=== PATIENT | female | born 1955 | race Caucasian/White ===

== ENCOUNTER 2019-02-09 16:28 | Inpatient (IN) | payer OTHER ==
[~2019-02-09] VITALS: Ht 160 cm; Wt 96.6 kg
--- NOTE | ~2019-02-09 | EKG ---
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
--- NOTE | ~2019-02-09 | EKG ---
[place], [place] ELECTROCARDIOGRAM REPORT NAME: GOLDEN LAND UNIT #: [id number] ROOM: 518 DOCTOR: ARLETH DRAFT REPORT BIRTHDATE: [birth year] [facility] Test Date: 2019-02-09 Test Time: 22:14:29 Pat Name: GOLDEN LAND Department: Room: 518 Gender: F [employer] Assembler: Chidi Buchanan : 1955 Requested By: GEN CORONADO Order Number: [id number] Reading MD: Kavitha Alexander MD Measurements Intervals [place] Rate: 62 P: 57 [place]: 177 QRS: 12 QRSD: 93 T: 13 QT: 423 QTc: 430 Interpretive Statements Sinus rhythm Consider left atrial enlargement Consider inferior infarct Baseline wander in lead(s) V4 Electronically Signed On 02-10-2019 13:50:35 PDT by Kavitha Alexander MD CM:EKGRPT:ELECTROCARDIOGRAM REPORT [id number] GEN AMADO DRAFT REPORT GEN CORONADO DO
--- NOTE | ~2019-02-09 | PR ---
[place], [place] PROGRESS NOTE NAME: GOLDEN LAND UNIT #: [id number] ROOM: 518 DOCTOR: DONY MCKNIGHT MD BIRTHDATE: [birth year] DOS: PHYSICAL EXAMINATION: GENERAL APPEARANCE: The patient is alert and oriented x 3, in no visible distress. VITAL SIGNS: Blood pressure 142/72, heart rate of 82 beats per minute, afebrile, breathing normally. HEENT AND NECK: Exam within normal limits. CARDIOVASCULAR SYSTEM: Heart rate is regular in rate and rhythm. S1 and S2 normally audible. LUNGS: Clear to auscultation. ABDOMEN: Soft, nontender. No obvious organomegaly. Bowel sounds are present. EXTREMITIES: Without significant cyanosis or edema. DISCHARGE DIAGNOSES: 1. Chest pains with negative cardiac enzymes. Cardiolite results still pending. Stress test was normal so far. 2. Benign essential hypertension. 3. Obesity, BMI of 36.7. 4. Mixed type hyperlipidemia. 5. Iron deficiency anemia. 6. Migraine type headaches. 7. Type 2 diabetes mellitus. 8. The patient presented with complaints of left-sided and precordial chest pain radiating into the left shoulder until she was treated in the Emergency Department and her pains resolved. All cardiac enzymes negative. The patient underwent cardiac stress testing and nuclear scan results are still pending. If normal, the patient will be discharged to home. Dr. Alexander will read the nuclear results. 9. Benign essential hypertension with severely elevated blood pressures at admission. The patient was started on her Coreg that she takes at home and I also added Norvasc 5 mg to treatment. Following this, I discovered that the patient was also taking losartan and hydrochlorothiazide at home, which was also restarted. Blood pressures are staying normal. 10. Hypothyroidism, replaced with levothyroxine. 11. Type 2 diabetes mellitus, treated with metformin. Blood sugar was 126. 12. Type 2 diabetes mellitus. Blood sugars controlled. 13. Diabetic nephropathy with EGFR 53, which is stage 3A chronic kidney disease. The patient appropriately treated with losartan. [place], [place] PROGRESS NOTE NAME: GOLDEN LAND UNIT #: [id number] ROOM: 518 DOCTOR: DONY MCKNIGHT MD BIRTHDATE: [birth year] DONY MCKNIGHT MD CM:PNHEIDI [id number] DONY MCKNIGHT MD 02/10/19 1126 interface
--- NOTE | ~2019-02-09 | EKG ---
[place], [place] ELECTROCARDIOGRAM REPORT NAME: GOLDEN LAND UNIT #: [id number] ROOM: 518 DOCTOR: ARLETH DRAFT REPORT BIRTHDATE: [birth year] [facility] Test Date: 2019-02-09 Test Time: 19:28:12 Pat Name: GOLDEN LAND Department: Room: 518 Gender: F Web Page Designer: Chidi Buchanan : 1955 Requested By: GEN CORONADO Order Number: [id number] Reading MD: Kavitha Alexander MD Measurements Intervals [place] Rate: 63 P: 19 [place]: 163 QRS: -3 QRSD: 100 T: 22 QT: 426 QTc: 437 Interpretive Statements Sinus rhythm Inferior infarct, old Electronically Signed On 02-10-2019 13:48:49 PDT by Kavitha Alexander MD CM:EKGRPT:ELECTROCARDIOGRAM REPORT [id number] 1348 GEN AMADO DRAFT REPORT GEN CORONADO DO
--- NOTE | ~2019-02-09 | WRIGHTHP ---
[place], [place] PATIENT HISTORY AND PHYSICAL EXAM NAME: GOLDEN LAND [facility] #: [id number] UNIT #: [id number] ROOM: 518 DOCTOR: DONY MCKNIGHT MD BIRTHDATE: [birth year] DOS: 02/09/2019 HISTORY OF PRESENT ILLNESS: The patient is a 63-year-old female with a past medical history of: 1. Hypertension. 2. Obesity, BMI of 36.7. 3. Mixed hyperlipidemia. 4. Iron-deficiency anemia. 5. Migraine-type headaches. 6. Type 2 diabetes mellitus. The patient presented to the Emergency Department with chest pains for a few hours, which resolved in the Emergency Department after she was given treatment. The pains were precordial and radiating into the left shoulder and accompanied by shortness of breath. No nausea or diaphoresis. The patient's troponin level was normal. Creatinine elevated to 1.25, blood sugar 126. Chest x-ray normal. EKG without acute abnormality. IMPRESSIONS: 1. Chest pains with negative cardiac enzymes. Three more sets were ordered and if they are negative, the patient has been scheduled for a cardiac stress test in the morning. The patient has previous history of 30% blockage of coronary artery 2 years back when she had a heart catheterization. The patient is a high risk for coronary artery disease because of her age of 63, complains of angina-like chest pains, being a diabetic and hypertensive. 2. Severe benign essential hypertension with severe hypertensive crisis with blood pressure of 217 systolic and 199 diastolic, improved with treatment. I will continue her Coreg and add Norvasc to the treatment. 3. Obesity with body mass index of 36.7. The patient to work with dietary. DONY MCKNIGHT MD CM:HISPHYS:PATIENT HISTORY AND PHYSICAL EXAMINATION 24 29 DONY MCKNIGHT MD 02/09/192028 interface
--- NOTE | ~2019-02-09 | ST ---
[place], [place] EXERCISE STRESS TEST REPORT [id number] UNIT #: [id number] ROOM: 518 DOCTOR: DONY MCKNIGHT MD BIRTHDATE: [birth year] DOS: 02/10/2019 LEXISCAN CARDIOLITE STRESS TEST The patient is a 63-year-old female, presently admitted to [facility] for complaints of chest pains when she does have a history of coronary artery disease. The patient was given Lexiscan 0.4 mg, followed by nuclear injection at 40 seconds with a Cardiolite and her EKG were monitored. The patient had no chest pain complaints during the testing and recovery phase. Baseline EKG showed heart rate of 62 beats per minute with normal sinus rhythm, normal cardiac axis, no ST-T abnormality. During the testing and recovery phase, the patient did not develop any significant EKG changes compatible with myocardial ischemia. The patient's heart rate ranged between 62-93 beats per minute and blood pressure ranged between 138 systolic over 80 diastolic to 150 systolic over 90 diastolic. No significant cardiac dysrhythmias were observed. IMPRESSION: Normal EKG part of the Lexiscan Cardiolite stress test. Normal EKG's. Cardiolite nuclear scan results to be reported by Dr. Alexander separately later today. DONY MCKNIGHT MD CM:STRESS:EXERCISE STRESS TEST REPORT [id number] DONY MCKNIGHT MD
[~2019-02-09 16:28] MED LIST: ASPIRIN81 M1 PO; CARVEDILOL25 MG PO; ELOCON0.1% T; METFORMIN ER500 MG PO; PANTOPRAZOLE SO40 MG PO; ZYRTEC10 MG PO
[2019-02-09 16:33] VITALS: BP 217/99
[2019-02-09 16:48] LABS: BASO # 0.1 10*3/uL (0.0-0.1); BASO % 1.1 % (0.0-1.0); EOS # 0.2 10*3/uL (0.0-0.4); EOS % 2.4 % (1.0-4.0); HEMATOCRIT 37.3 % (37.0-47.0); HEMOGLOBIN 12.3 g/dl (12.0-16.0); LYMPH # 1.7 10*3/uL (1.3-4.4); LYMPH % 26.1 % (27.0-41.0); MEAN CELL VOLUME 92.6 fl (81.0-99.0); MEAN CORPUSCULAR HGB 30.5 pg (27.0-31.0); MEAN PLATELET VOLUME 10.9 fl (9.6-12.3); MONO # 0.5 10*3/uL (0.1-1.0); MONO % 7.2 % (3.0-9.0); NEUT % 62.9 % (47.0-73.0); PLATELET COUNT AUTOMATED 230 10*3/uL (130-400); RED BLOOD COUNT 4.03 10*6/uL (4.10-5.10); RED CELL DISTRI WIDTH 13.5 % (0-14.5); WHITE BLOOD COUNT 6.4 10*3/uL (4.8-10.8)
[2019-02-09 16:49] VITALS: BP 190/88
[2019-02-09 16:56] VITALS: BP 174/86
--- NOTE | 2019-02-09 17:04 | NUR ---
PT UP TO THE BS WITH NO ASSIST, PT STATES SHE HAS NO CHEST PAIN AT THIS TIME.
[2019-02-09 17:13] LABS: ALBUMIN 3.6 gm/dl (3.1-4.5); ALKALINE PHOSPHATASE 86 U/L (45-117); BUN 21 mg/dl (7-24); CHLORIDE 106 mmol/L (98-107); CREATININE 1.25 mg/dL (0.55-1.02); POTASSIUM 4.2 mmol/L (3.5-5.1); SGOT/AST 19 IU/L (3-35); SGPT/ALT 20 U/L (12-78); SODIUM 142 mmol/L (136-145); TOTAL PROTEIN 7.9 gm/dL (6.4-8.2)
[2019-02-09 17:16] LABS: ACT PARTIAL THROMBO TIME 25.1 SECONDS (20.8-31.5); TROPONIN I < 0.015 ng/ml (<0.045)
[2019-02-09 18:57] VITALS: BP 155/88
[2019-02-09 20:10] VITALS: BP 147/77
--- NOTE | 2019-02-09 20:20 | NUR ---
A 63, admitted to 5E, under the services of Dr. JUAN LUIS ELIZABETH,DONY Kerns with a diagnosis of . Chief complaint is CHEST PAIN. Patient arrived via wheel chair from ER. Monitor applied. Initial assessment completed. Vital signs taken and recorded. DR. JUAN LUIS ELIZABETH,DONY Kerns notified of admission to the unit. Orders received. See assessment for past medical history, medications and allergies. Patient and/or family oriented to unit. [address] visitation policy reviewed. Clothing/patient valuable form completed. STEVEN LUQUE
[2019-02-09 20:30] VITALS: BP 132/72
[2019-02-09] MEDS ORDERED: Synthroid,Levo25 MCG PO (20:44)
[2019-02-09] MEDS ORDERED: LOSARTAN-HCTZ1 EACH PO (20:47)
--- NOTE | 2019-02-09 21:47 | NUR ---
CALLED DR. Holbrook TO CLARIFY MED LIST, OKAY TO ADD SYNTHROID, LASARTAN HCTZ, AND METFORMIN. OKAY GIVE TYLENOL FOR HEADACHE. NURSE THANMKED STAFF.
--- NOTE | 2019-02-09 22:11 | NUR ---
CALLED CONSULT TO ANSWERING SERVICE FOR CONSULT AND STRESS TEST REQUEST. GAVE CURRENT VITALS. FOR DR. LEUNG.
--- NOTE | 2019-02-09 23:30 | NUR ---
PATIENT MEDICATED SLOWLY WITH DILAUDID 0.5 MG IV PER PRN ORDER FOR C/O HEADACHE NOT RELIEVED BY TYLENOL. SEE EMAR. REINFORCED USE OF CALL LIGHT.
[2019-02-10] VITALS: BP 143/72
--- NOTE | 2019-02-10 | NUR ---
PATIENT RESTING QUIETLY. NO FURTHER C/O VOICED.
--- NOTE | 2019-02-10 03:25 | NUR ---
24 HR chart check completed.
[2019-02-10 08:00] VITALS: BP 154/68
--- NOTE | 2019-02-10 08:30 | NUR ---
Manuscripts Curator in to see patient. She is currently being wheeled to cardiac rehab for a stress test. Will follow up at a later time.
--- NOTE | 2019-02-10 08:34 | NUR ---
PT OFF FLOOR VIA WHEELCHAIR TO CARDIAC REHAB.
--- NOTE | 2019-02-10 09:28 | NUR ---
INFORMED SIGNED CONSENT OBTAINED FOR LEXISCAN STRESS TEST WITH DR MCKNIGHT. RESTING EKG NSR HR 62 BP 150/90. PULSE OX 99% LUNGS CLEAR. PT COMPLETED ONE MINUTE OF A LEXISCAN STRESS TEST WITH PT RECEIVING LEXISCAN 0.4MG IV OVER 10 SEC[address] NO ARRHYTHMIAS OR ST CHANGES NOTED. PT CONTINUES TO HAVE NAUSEA AND EMESIS WITH INJECTION, PT WAS NAUSEATED WHEN SHE CAME DOWN TO CARD DEPARTMENT. LAST RECOVERY HR OF 88 BP 140/82. PT HAD AN UNMEASURABLE EMESIS ONTO THE FLOOR. PT IN STABLE CONDITION, AWAITING NUCLEAR IMAGES.
--- NOTE | 2019-02-10 11:25 | NUR ---
PT RETURNED FROM STRESS TEST VIA TRANSPORT.
[2019-02-10 12:00] VITALS: BP 164/72
--- NOTE | 2019-02-10 13:56 | NUR ---
Patient resting quietly with no c/o discomfort. Respirations easy and regular. Vital signs stable. No overt distress. GOLDEN JIANG
--- NOTE | 2019-02-10 14:30 | NUR ---
Literacy Consultant in to talk to patient. Patient states lives at home alone with her family checking in on her. There are 12 steps in the home. Physician: Dr. Ok Antonio [facility]acy: [facility] Home health services: none Patient's level of ADLs: INDEPENDENT Patient has working utilities: yes DME: none Follow-up physician's appointment after d/c: she prefers to make her own follow up appt after discharge Does patient want to access PORTAL?: no Discharge plan discussed with patient. She lives at home with her family checking in on her. She is independent in her ADLs and ambulation. Discussed home health care services and she denies any home needs at this time. When medically stable she will be discharged to home. ARCHANA MCGINNIS
[2019-02-10 16:00] VITALS: BP 105/57
--- NOTE | 2019-02-10 16:06 | NUR ---
SPOKE TO DR MCKNIGHT REGARDING PTS DISCHARGE. ORDER RECEIVED TO DISCHARGE PT TO HOME. RESUME HOME MEDICATIONS. SEE PCP WEDNESDAY. NO NEW MEDICATIONS
--- NOTE | 2019-02-10 18:45 | NUR ---
Discharge instructions reviewed with patient/family. Patient receptive and verbalizes understanding. Follow-up care arranged. Written instructions given to patient/family. GOLDEN JIANG
== END 2019-02-10 18:45 | disposition home or self-care (01) | DRG 305 ==
LOC: ED 16:28 → 5E 18:35 → EDHOLD 18:35 → 5E 20:10
PROVIDERS: Emergency Medicine; ADMIT Internal Medicine
DX: I16.0 Hypertensive urgency (principal); E66.9 Obesity, unspecified; I12.9 Hypertensive chronic kidney disease with stage 1 through stage 4 chronic kidney disease, or unspecified chronic kidney disease; E11.22 Type 2 diabetes mellitus with diabetic chronic kidney disease; E78.00 Pure hypercholesterolemia, unspecified; G43.909 Migraine, unspecified, not intractable, without status migrainosus; D50.9 Iron deficiency anemia, unspecified; N18.3 Chronic kidney disease, stage 3 (moderate); E78.2 Mixed hyperlipidemia; E03.9 Hypothyroidism, unspecified; R07.89 Other chest pain; Z88.8 Allergy status to other drugs, medicaments and biological substances; Z90.710 Acquired absence of both cervix and uterus; Z98.51 Tubal ligation status; Z82.49 Family history of ischemic heart disease and other diseases of the circulatory system; Z68.36 Body mass index [BMI] 36.0-36.9, adult

== ENCOUNTER 2019-03-29 15:40 | Emergency (ER) | payer OTHER ==
[~2019-03-29] VITALS: Ht 160 cm; Wt 93.9 kg
[~2019-03-29 15:40] MED LIST changes: +LOSARTAN-HCTZ1 EACH PO; +Synthroid,Levo25 MCG PO
[2019-03-29 16:36] VITALS: BP 145/78
[2019-03-29] MEDS ORDERED: MEDROL DOSEPAK4 MG PO (17:28)
[2019-03-29] MEDS ORDERED: EPIPEN 2-P0.3 MG/0.3 IJ (17:32)
== END 2019-03-29 17:37 | disposition home or self-care (01) ==
LOC: ED 15:40
DX: T63.461A Toxic effect of venom of wasps, accidental (unintentional), initial encounter (principal); M79.89 Other specified soft tissue disorders; R09.89 Other specified symptoms and signs involving the circulatory and respiratory systems; Z88.8 Allergy status to other drugs, medicaments and biological substances; Z88.1 Allergy status to other antibiotic agents; Z79.84 Long term (current) use of oral hypoglycemic drugs; Z79.899 Other long term (current) drug therapy; Z90.710 Acquired absence of both cervix and uterus; Y92.89 Other specified places as the place of occurrence of the external cause

== ENCOUNTER → 2019-05-30 | Outpatient (CLI) | payer OTHER ==
[~2019-05-30] MED LIST changes: +EPIPEN 2-P0.3 MG/0.3 IJ; +MEDROL DOSEPAK4 MG PO
[2019-05-30 08:31] LABS: HEMATOCRIT 37.2 % (37.0-47.0); HEMOGLOBIN 12.2 g/dl (12.0-16.0); MEAN CELL VOLUME 95.1 fl (81.0-99.0); MEAN CORPUSCULAR HGB 31.2 pg (27.0-31.0); MEAN CORPUSCULAR HGB CONC 32.8 g/dl (33.0-37.0); RED BLOOD COUNT 3.91 10*6/uL (4.10-5.10); RED CELL DISTRI WIDTH 14.5 % (0-14.5); WHITE BLOOD COUNT 4.4 10*3/uL (4.8-10.8)
[2019-05-30 09:03] LABS: ALBUMIN 3.9 gm/dl (3.1-4.5); POTASSIUM 4.4 mmol/L (3.5-5.1)
[2019-05-30 09:10] LABS: CREATININE 1.19 mg/dL (0.55-1.02); FREE T4 1.07 ng/dl (0.76-1.46); THYROID STIM HORMONE (HS) 2.96 uIU/ml (0.358-4.75); TOTAL PROTEIN 7.1 gm/dL (6.4-8.2)
== END | disposition home or self-care (01) ==
LOC: LAB 07:35
PROVIDERS: Family Medicine
DX: E78.00 Pure hypercholesterolemia, unspecified (principal); E55.9 Vitamin D deficiency, unspecified; E74.9 Disorder of carbohydrate metabolism, unspecified; M19.91 Primary osteoarthritis, unspecified site; I10 Essential (primary) hypertension

== ENCOUNTER → 2019-12-07 | Outpatient (CLI) | payer OTHER ==
[2019-12-07 09:25] LABS: HEMATOCRIT 39.9 % (37.0-47.0); MEAN CELL VOLUME 94.5 fl (81.0-99.0); MEAN CORPUSCULAR HGB 30.8 pg (27.0-31.0); MEAN CORPUSCULAR HGB CONC 32.6 g/dl (33.0-37.0); RED BLOOD COUNT 4.22 10*6/uL (4.10-5.10); RED CELL DISTRI WIDTH 13.4 % (0-14.5); WHITE BLOOD COUNT 4.7 10*3/uL (4.8-10.8)
[2019-12-07 09:54] LABS: ALBUMIN 4.1 gm/dl (3.1-4.5); ALKALINE PHOSPHATASE 73 U/L (45-117); CHLORIDE 108 mmol/L (98-107); CHOLESTEROL 233 mg/dL (<200); CREATININE 1.07 mg/dL (0.55-1.02); HDL CHOLESTEROL 52 mg/dl (40-60); LDL CHOLESTEROL 141 mg/dL (9-159); POTASSIUM 4.4 mmol/L (3.5-5.1); SGOT/AST 12 IU/L (3-35); SGPT/ALT 24 U/L (12-78); SODIUM 143 mmol/L (136-145); TOTAL PROTEIN 7.3 gm/dL (6.4-8.2); TRIGLYCERIDES 201 mg/dl (<150); VLDL CHOLESTEROL 40 mg/dL (6-40)
[2019-12-07 10:01] LABS: BUN 23 mg/dl (7-24)
== END | disposition home or self-care (01) ==
LOC: LAB 09:05
PROVIDERS: Family Medicine
DX: I10 Essential (primary) hypertension (principal); E03.9 Hypothyroidism, unspecified; E78.00 Pure hypercholesterolemia, unspecified; R73.9 Hyperglycemia, unspecified

== ENCOUNTER → 2020-09-23 | Outpatient (CLI) | payer OTHER ==
[2020-09-23 11:25] LABS: BUN 15 mg/dl (7-24)
== END | disposition home or self-care (01) ==
LOC: LAB 10:53 → CT 11:00
PROVIDERS: ATTEND Obstetrics & Gynecology Hospice and Palliative Medicine
DX: K80.20 Calculus of gallbladder without cholecystitis without obstruction (principal); K59.00 Constipation, unspecified; Q89.09 Congenital malformations of spleen

== ENCOUNTER → 2021-04-10 | Outpatient (CLI) | payer OTHER | END | disposition home or self-care (01) | LOC: RAD 10:26 | PROVIDERS: ATTEND Family Medicine | DX: M17.12 Unilateral primary osteoarthritis, left knee (principal); M25.762 Osteophyte, left knee; M25.862 Other specified joint disorders, left knee ==

== ENCOUNTER → 2021-04-18 | Outpatient (CLI) | payer OTHER ==
[~2021-04-18] MED LIST changes: +COZAAR100 MG PO; +CRESTOR40 M1 PO; +GOOD NEIGHBOR L10 MG PO; +HYDR25T PO; +MONTELUKAST SOD10 MG PO; +NORVASC2.5 MG PO; +ONE-DAILY MULT1 EACH PO; +ROSUVASTATIN CA40 MG PO
== END | disposition home or self-care (01) ==
LOC: LAB 08:16
PROVIDERS: ATTEND Family Medicine
DX: I10 Essential (primary) hypertension (principal)

== ENCOUNTER → 2021-09-03 | Outpatient (CLI) | payer BC, OTHER ==
[2021-09-03 10:37] LABS: ALBUMIN 3.9 gm/dl (3.1-4.5); ALKALINE PHOSPHATASE 69 U/L (45-117); BUN 17 mg/dl (7-24); CHLORIDE 111 mmol/L (98-107); CHOLESTEROL 146 mg/dL (<200); CPK 133 U/L (26-192); CREATININE 0.97 mg/dL (0.55-1.02); FREE T4 1.01 ng/dl (0.76-1.46); LDL CHOLESTEROL 62 mg/dL (9-159); POTASSIUM 4.4 mmol/L (3.5-5.1); SGOT/AST 21 IU/L (3-35); SGPT/ALT 32 U/L (12-78); SODIUM 143 mmol/L (136-145); TOTAL PROTEIN 7.1 gm/dL (6.4-8.2); TRIGLYCERIDES 155 mg/dl (<150)
== END | disposition home or self-care (01) ==
LOC: LAB 09:58
PROVIDERS: ATTEND Family Medicine
DX: E78.00 Pure hypercholesterolemia, unspecified (principal); E03.9 Hypothyroidism, unspecified; I10 Essential (primary) hypertension; E55.9 Vitamin D deficiency, unspecified

== ENCOUNTER → 2021-10-13 | Outpatient (CLI) | payer BC, OTHER ==
[2021-10-13 09:01] LABS: HEMATOCRIT 38.8 % (37.0-47.0); MEAN CELL VOLUME 93.7 fl (81.0-99.0); MEAN CORPUSCULAR HGB 30.9 pg (27.0-31.0); MEAN PLATELET VOLUME 11.4 fl (9.6-12.3); RED BLOOD COUNT 4.14 10*6/uL (4.10-5.10); RED CELL DISTRI WIDTH 13.5 % (0-14.5); WHITE BLOOD COUNT 5.4 10*3/uL (4.8-10.8)
[2021-10-13 09:27] LABS: FREE T4 1.17 ng/dl (0.76-1.46); THYROID STIM HORMONE (HS) 3.52 uIU/ml (0.358-4.75)
== END | disposition home or self-care (01) ==
LOC: LAB 08:35
PROVIDERS: ATTEND Family Medicine
DX: E03.9 Hypothyroidism, unspecified (principal); D64.9 Anemia, unspecified

== ENCOUNTER → 2021-12-03 | Outpatient (CLI) | payer BC, OTHER | END | disposition home or self-care (01) | LOC: LAB 10:12 | PROVIDERS: ATTEND Family Medicine | DX: L50.9 Urticaria, unspecified (principal); L29.9 Pruritus, unspecified ==

== ENCOUNTER → 2022-02-05 | Outpatient (CLI) | payer BC, OTHER ==
[2022-02-05 08:22] LABS: MEAN CELL VOLUME 93.3 fl (81.0-99.0); MEAN CORPUSCULAR HGB 30.1 pg (27.0-31.0); MEAN CORPUSCULAR HGB CONC 32.2 g/dl (33.0-37.0); MEAN PLATELET VOLUME 10.9 fl (9.6-12.3); RED BLOOD COUNT 3.86 10*6/uL (4.10-5.10); RED CELL DISTRI WIDTH 14.6 % (0-14.5); WHITE BLOOD COUNT 4.9 10*3/uL (4.8-10.8)
[2022-02-05 08:41] LABS: ALKALINE PHOSPHATASE 70 U/L (45-117); BUN 17 mg/dl (7-24); CHLORIDE 109 mmol/L (98-107); CHOLESTEROL 147 mg/dL (<200); CPK 112 U/L (26-192); CREATININE 0.95 mg/dL (0.55-1.02); FREE T4 1.05 ng/dl (0.76-1.46); LDL CHOLESTEROL 56 mg/dL (9-159); POTASSIUM 3.8 mmol/L (3.5-5.1); SGOT/AST 14 IU/L (3-35); SGPT/ALT 23 U/L (12-78); SODIUM 142 mmol/L (136-145); TOTAL PROTEIN 6.9 gm/dL (6.4-8.2); TRIGLYCERIDES 193 mg/dl (<150)
== END | disposition home or self-care (01) ==
LOC: LAB 08:02
PROVIDERS: ATTEND Family Medicine
DX: I10 Essential (primary) hypertension (principal); E03.9 Hypothyroidism, unspecified; E78.00 Pure hypercholesterolemia, unspecified; E55.9 Vitamin D deficiency, unspecified

== ENCOUNTER → 2022-05-07 | Outpatient (CLI) | payer BC, OTHER ==
[2022-05-07 08:57] LABS: ALKALINE PHOSPHATASE 69 U/L (45-117); BUN 22 mg/dl (7-24); CHLORIDE 111 mmol/L (98-107); CHOLESTEROL 143 mg/dL (<200); CPK 141 U/L (26-192); CREATININE 0.99 mg/dL (0.55-1.02); FREE T4 1.06 ng/dl (0.76-1.46); LDL CHOLESTEROL 66 mg/dL (9-159); POTASSIUM 4.2 mmol/L (3.5-5.1); SGOT/AST 15 IU/L (3-35); SGPT/ALT 25 U/L (12-78); SODIUM 143 mmol/L (136-145); TOTAL PROTEIN 6.9 gm/dL (6.4-8.2); TRIGLYCERIDES 134 mg/dl (<150)
== END | disposition home or self-care (01) ==
LOC: LAB 08:23
PROVIDERS: ATTEND Family Medicine
DX: E78.00 Pure hypercholesterolemia, unspecified (principal); E03.9 Hypothyroidism, unspecified; I10 Essential (primary) hypertension; R53.83 Other fatigue

== ENCOUNTER → 2022-07-13 | Outpatient (CLI) | payer BC | LOC: MAMMO 10:00 | PROVIDERS: ATTEND Family Medicine | DX: Z12.31 Encounter for screening mammogram for malignant neoplasm of breast (principal) ==

== ENCOUNTER → 2022-09-28 | Outpatient (CLI) | payer BC ==
[2022-09-28 10:27] LABS: CHLORIDE 108 mmol/L (98-107); POTASSIUM 4.5 mmol/L (3.5-5.1); SODIUM 141 mmol/L (136-145)
[2022-09-28 11:16] LABS: ALKALINE PHOSPHATASE 72 U/L (45-117); BUN 26 mg/dl (7-24); CHOLESTEROL 148 mg/dL (<200); CPK 138 U/L (26-192); CREATININE 0.99 mg/dL (0.55-1.02); FREE T4 1.16 ng/dl (0.76-1.46); LDL CHOLESTEROL 71 mg/dL (9-159); SGOT/AST 18 IU/L (3-35); SGPT/ALT 33 U/L (12-78); TOTAL PROTEIN 7.3 gm/dL (6.4-8.2); TRIGLYCERIDES 171 mg/dl (<150)
== END | disposition home or self-care (01) ==
LOC: LAB 08:50
PROVIDERS: ATTEND Family Medicine
DX: E78.00 Pure hypercholesterolemia, unspecified (principal); I10 Essential (primary) hypertension; E03.9 Hypothyroidism, unspecified

== ENCOUNTER → 2023-01-05 | Outpatient (CLI) | payer BC ==
[2023-01-05 09:50] LABS: HEMATOCRIT 38.2 % (37.0-47.0); MEAN CELL VOLUME 94.3 fl (81.0-99.0); MEAN CORPUSCULAR HGB 30.4 pg (27.0-31.0); MEAN CORPUSCULAR HGB CONC 32.2 g/dl (33.0-37.0); MEAN PLATELET VOLUME 10.9 fl (9.6-12.3); RED BLOOD COUNT 4.05 10*6/uL (4.10-5.10); RED CELL DISTRI WIDTH 13.9 % (0-14.5); WHITE BLOOD COUNT 5.3 10*3/uL (4.8-10.8)
[2023-01-05 10:15] LABS: ALKALINE PHOSPHATASE 68 U/L (46-116); BUN 14 mg/dl (9-23); CHLORIDE 104 mmol/L (98-107); CHOLESTEROL 131 mg/dL (<200); CPK 136 U/L (34-171); FREE T4 1.41 ng/dl (0.89-1.76); LDL CHOLESTEROL 64 mg/dL (9-159); POTASSIUM 4.3 mmol/L (3.4-5.1); SGPT/ALT 23 U/L (10-49); THYROID STIM HORMONE (HS) 2.109 uIU/ml (0.550-4.780); TOTAL PROTEIN 6.7 gm/dL (6.0-8.0); TRIGLYCERIDES 117 mg/dl (<150)
== END | disposition home or self-care (01) ==
LOC: LAB 09:02
PROVIDERS: ATTEND Family Medicine
DX: E03.9 Hypothyroidism, unspecified (principal); E78.00 Pure hypercholesterolemia, unspecified; E55.9 Vitamin D deficiency, unspecified

== ENCOUNTER → 2023-01-27 | Outpatient (CLI) | payer BC | END | disposition home or self-care (01) | LOC: RAD 08:40 | PROVIDERS: ATTEND Family Medicine | DX: I70.0 Atherosclerosis of aorta (principal); R06.02 Shortness of breath; R60.0 Localized edema; M47.814 Spondylosis without myelopathy or radiculopathy, thoracic region ==

== ENCOUNTER → 2023-02-03 | Outpatient (CLI) | payer BC | END | disposition home or self-care (01) | LOC: CARD 09:30 | PROVIDERS: ATTEND Family Medicine | DX: I08.0 Rheumatic disorders of both mitral and aortic valves (principal) ==

== ENCOUNTER → 2023-02-17 | Outpatient (CLI) | payer BC ==
[2023-02-17 10:50] LABS: HEMATOCRIT 36.8 % (37.0-47.0); MEAN CELL VOLUME 92.2 fl (81.0-99.0); MEAN CORPUSCULAR HGB 31.3 pg (27.0-31.0); MEAN PLATELET VOLUME 10.9 fl (9.6-12.3); RED BLOOD COUNT 3.99 10*6/uL (4.10-5.10); RED CELL DISTRI WIDTH 13.6 % (0-14.5); WHITE BLOOD COUNT 4.6 10*3/uL (4.8-10.8)
[2023-02-17 11:53] LABS: ALKALINE PHOSPHATASE 72 U/L (46-116); BUN 14 mg/dl (9-23); CHLORIDE 106 mmol/L (98-107); POTASSIUM 3.7 mmol/L (3.4-5.1); SGPT/ALT 20 U/L (10-49); TOTAL PROTEIN 6.9 gm/dL (6.0-8.0)
== END | disposition home or self-care (01) ==
LOC: LAB 10:24
PROVIDERS: ATTEND Family Medicine
DX: R60.0 Localized edema (principal); E87.5 Hyperkalemia

== ENCOUNTER → 2023-06-16 | Outpatient (CLI) | payer BC ==
[2023-06-16 09:29] LABS: HEMATOCRIT 35.7 % (37.0-47.0); MEAN CELL VOLUME 94.2 fl (81.0-99.0); MEAN CORPUSCULAR HGB 30.6 pg (27.0-31.0); MEAN CORPUSCULAR HGB CONC 32.5 g/dl (33.0-37.0); MEAN PLATELET VOLUME 10.7 fl (9.6-12.3); RED BLOOD COUNT 3.79 10*6/uL (4.10-5.10); RED CELL DISTRI WIDTH 14.5 % (0-14.5); WHITE BLOOD COUNT 6.5 10*3/uL (4.8-10.8)
[2023-06-16 10:02] LABS: POTASSIUM 4.4 mmol/L (3.4-5.1); TOTAL PROTEIN 6.6 gm/dL (6.0-8.0)
[2023-06-16 10:46] LABS: VITAMIN D, 25-HYDROXY 44.9 ng/mL (30-100)
== END | disposition home or self-care (01) ==
LOC: LAB 09:06
PROVIDERS: ATTEND Family Medicine
DX: E55.9 Vitamin D deficiency, unspecified (principal); E78.00 Pure hypercholesterolemia, unspecified; I10 Essential (primary) hypertension; R53.83 Other fatigue; R60.0 Localized edema

== ENCOUNTER → 2023-11-09 | Outpatient (CLI) | payer BC ==
[2023-11-09 10:08] LABS: BASO # 0.1 10*3/uL (0.0-0.1); BASO % 1.3 % (0.0-1.0); EOS # 0.2 10*3/uL (0.0-0.4); EOS % 3.7 % (1.0-4.0); LYMPH # 1.4 10*3/uL (1.3-4.4); LYMPH % 29.7 % (27.0-41.0); MEAN CELL VOLUME 95.5 fl (81.0-99.0); MEAN CORPUSCULAR HGB 30.7 pg (27.0-31.0); MEAN CORPUSCULAR HGB CONC 32.1 g/dl (33.0-37.0); MEAN PLATELET VOLUME 10.5 fl (9.6-12.3); MONO # 0.3 10*3/uL (0.1-1.0); MONO % 7.4 % (3.0-9.0); NEUT # 2.7 10*3/uL (2.3-7.9); NEUT % 57.7 % (47.0-73.0); PLATELET COUNT AUTOMATED 156 10*3/uL (130-400); RED BLOOD COUNT 3.98 10*6/uL (4.10-5.10); RED CELL DISTRI WIDTH 13.6 % (0-14.5); WHITE BLOOD COUNT 4.6 10*3/uL (4.8-10.8)
[2023-11-09 10:18] LABS: ACT PARTIAL THROMBO TIME 26.1 SECONDS (20.0-32.1)
[2023-11-09 10:48] LABS: ALKALINE PHOSPHATASE 66 U/L (46-116); BUN 21 mg/dl (9-23); CHLORIDE 110 mmol/L (98-107); POTASSIUM 4.3 mmol/L (3.4-5.1); SGPT/ALT 17 U/L (5-49); TOTAL PROTEIN 6.8 gm/dL (6.0-8.0)
[2023-11-09 10:52] LABS: FREE T4 1.39 ng/dl (0.89-1.76)
[2023-11-09 11:40] LABS: VITAMIN D, 25-HYDROXY 37.6 ng/mL (30-100)
== END | disposition home or self-care (01) ==
LOC: LAB 09:27
PROVIDERS: Family Medicine; ATTEND Orthopaedic Surgery
DX: Z01.818 Encounter for other preprocedural examination (principal); E78.00 Pure hypercholesterolemia, unspecified; I10 Essential (primary) hypertension; E55.9 Vitamin D deficiency, unspecified; E03.9 Hypothyroidism, unspecified

== ENCOUNTER → 2024-01-28 | Outpatient (CLI) | payer BC ==
[2024-01-28 08:32] LABS: HEMATOCRIT 36.5 % (37.0-47.0); MEAN CELL VOLUME 94.8 fl (81.0-99.0); MEAN CORPUSCULAR HGB 30.4 pg (27.0-31.0); MEAN CORPUSCULAR HGB CONC 32.1 g/dl (33.0-37.0); MEAN PLATELET VOLUME 10.2 fl (9.6-12.3); RED BLOOD COUNT 3.85 10*6/uL (4.10-5.10); RED CELL DISTRI WIDTH 14.2 % (0-14.5)
[2024-01-28 09:03] LABS: ALKALINE PHOSPHATASE 64 U/L (46-116); BUN 22 mg/dl (9-23); CHLORIDE 104 mmol/L (98-107); POTASSIUM 3.6 mmol/L (3.4-5.1); SGPT/ALT 15 U/L (5-49); TOTAL PROTEIN 6.9 gm/dL (6.0-8.0)
== END | disposition home or self-care (01) ==
LOC: LAB 07:58
PROVIDERS: ATTEND Family Medicine
DX: I10 Essential (primary) hypertension (principal); R60.0 Localized edema

== ENCOUNTER → 2024-06-16 | Outpatient (CLI) | payer MEDICARE ==
[2024-06-16 09:12] LABS: ALKALINE PHOSPHATASE 96 U/L (46-116); BUN 18 mg/dl (9-23); CHLORIDE 108 mmol/L (98-107); CHOLESTEROL 157 mg/dL (<200); CPK 89 U/L (34-171); LDL CHOLESTEROL 79 mg/dL (9-159); POTASSIUM 4.2 mmol/L (3.4-5.1); SGPT/ALT 19 U/L (5-49); TRIGLYCERIDES 176 mg/dl (<150)
== END | disposition home or self-care (01) ==
LOC: LAB 08:06
PROVIDERS: ATTEND Family Medicine
DX: I10 Essential (primary) hypertension (principal); E78.00 Pure hypercholesterolemia, unspecified

== ENCOUNTER → 2024-08-11 | Outpatient (CLI) | payer MEDICARE | END | disposition home or self-care (01) | LOC: RAD 11:42 | PROVIDERS: ATTEND Family Medicine | DX: R06.02 Shortness of breath (principal); R05.9 Cough, unspecified ==

== ENCOUNTER → 2024-08-23 | Outpatient (CLI) | payer MEDICARE | END | disposition home or self-care (01) | LOC: RAD 10:35 | PROVIDERS: ATTEND Family Medicine | DX: J18.8 Other pneumonia, unspecified organism (principal) ==